=== PATIENT | female | born 1970 ===

== ENCOUNTER 2017-03-21 17:47 | Emergency (ER) | payer MEDICAID ==
[2017-03-21 17:50] VITALS: BMI 26.5
[2017-03-21 17:59] VITALS: RESP 18
[2017-03-21] MEDS ORDERED: Oxycodone/Acetaminophen 5/325 mg Tab PO STA (17:59)
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
[2017-03-21 18:45] VITALS: BP 123/77; PULSE 91; TEMP 98.1
[2017-03-21 19:24] VITALS: O2SAT 99
--- NOTE | 2017-03-22 08:41 | RAD ---
PROCEDURE: Radiographs of the left great toe. TECHNIQUE:: AP radiograph of the left foot, with oblique and lateral view of the left great toe. COMPARISON: None. FINDINGS: BONES: First proximal phalangeal comminuted fracture with interphalangeal joint extension. No fracture displacements appreciated. No dislocation suggested JOINTS: As above SOFT TISSUES: 1st proximal phalangeal Overlying mild increased soft tissue density OTHER FINDINGS: None. IMPRESSION: Comminuted undisplaced 1st proximal phalange fracture with interphalangeal joint space extension
== END 2017-03-21 19:26 | disposition home or self-care (01) ==
LOC: ED 17:47
DX: S92.312A Displaced fracture of first metatarsal bone, left foot, initial encounter for closed fracture (principal); W22.8XXA Striking against or struck by other objects, initial encounter; Y93.89 Activity, other specified; Y92.89 Other specified places as the place of occurrence of the external cause

== ENCOUNTER 2017-03-27 12:40 | Emergency (ER) | payer MEDICAID ==
[2017-03-27 12:40] VITALS: BMI 26.5
--- NOTE | 2017-03-27 12:54 | ED PDOC ---
Arrival/HPI - General Time Seen by Provider: 03/27/17 12:53 Historian: Patient - History of Present Illness Narrative History of Present Illness (Text): 03/27/17 12:53 47 y/o female, pmh including asthma and 1st toe fracture (cee tape and splinted), nkda, c/o lt. foot toe digit pain s/p took the splint off. I see the patient about 4 days ago for the fracture of the toe, stated that she took the splint off as it was dirty, here having pain and request to be splint again. Pt. didn't have any new fall or trauma, didn't stand on it, no fever or chills, no headache or night sweat, no dizziness, no other medical or psychological complaints. Past Medical History - Provider Review Nursing Documentation Reviewed: Yes - Infectious Disease Hx of Infectious Diseases: None - Cardiac Hx Cardiac Disorders: No - Pulmonary Hx Respiratory Disorders: Yes Hx Asthma: Yes - Neurological Hx Neurological Disorder: No - HEENT Hx HEENT Disorder: No - Renal Hx Renal Disorder: No - Endocrine/Metabolic Hx Endocrine Disorders: No - Hematological/Oncological Hx Blood Disorders: No - Integumentary Hx Dermatological Disorder: No - Musculoskeletal/Rheumatological Hx Musculoskeletal Disorders: No - Gastrointestinal Hx Gastrointestinal Disorders: No - Genitourinary/Gynecological Hx Genitourinary Disorders: No - Psychiatric Hx Psychophysiologic Disorder: No Hx Substance Use: No - Surgical History Hx Hysterectomy: Yes - Anesthesia Hx Anesthesia: Yes Hx Anesthesia Reactions: No Family/Social History - Physician Review Nursing Documentation Reviewed: Yes Family/Social History: Unknown Family HX Smoking Status: Never Smoked Hx Alcohol Use: Yes Hx Substance Use: No Allergies/Home Meds Allergies/Adverse Reactions: Allergies No Known Allergies Allergy (Verified 03/21/17 17:50) Home Medications: Home Meds Medication Instructions Recorded Confirmed Albuterol HFA [Ventolin HFA 90 1 puff IH PRN PRN 03/21/17 03/27/17 mcg/actuation (8 g)] Review of Systems - Review of Systems Constitutional: absent: Fatigue, Fevers Eyes: absent: Vision Changes ENT: absent: Hearing Changes Respiratory: absent: SOB, Cough Cardiovascular: absent: Chest Pain Gastrointestinal: absent: Abdominal Pain, Nausea, Vomiting Musculoskeletal: Arthralgias Physical Exam Vital Signs Reviewed: Yes Vital Signs Temp Pulse Resp BP Pulse Ox 03/27/17 13:04 97.9 F 81 18 129/85 98 Temperature: Afebrile Blood Pressure: Normal Pulse: Regular Respiratory Rate: Normal Appearance: Positive for: Well-Appearing, Non-Toxic, Comfortable Pain Distress: Moderate Mental Status: Positive for: Alert and Oriented X 3 - Systems Exam Head: Present: Atraumatic, Normocephalic Pupils: Present: PERRL Extroacular Muscles: Present: EOMI Conjunctiva: Present: Normal Mouth: Present: Moist Mucous Membranes Neck: Present: Normal Range of Motion Respiratory/Chest: Present: Clear to Auscultation, Good Air Exchange. No: Respiratory Distress, Accessory Muscle Use Cardiovascular: Present: Regular Rate and Rhythm, Normal S1, S2. No: Murmurs Abdomen: Present: Normal Bowel Sounds. No: Tenderness, Distention, Peritoneal Signs Back: Present: Normal Inspection Upper Extremity: Present: Normal Inspection. No: Cyanosis, Edema Lower Extremity: Present: Normal Inspection, Other (Lt. foot: +ttp on the 1st great toe region, skin intact, no laceration or abrasion, no skin discoloration , FROM without limitation, sensation intact, motor 5/5, +DPPT pulses, capillary refill< 2 seconds, neurovascular intact. ). No: Edema Neurological: Present: GCS=15, Speech Normal, Motor Func Grossly Intact, Gait Normal, Memory Normal Skin: Present: Warm, Dry, Normal Color. No: Rashes Psychiatric: Present: Alert, Oriented x 3, Normal Insight, Normal Concentration Medical Decision Making ED Course and Treatment: 03/27/17 12:55 -new cee tapping and splint applied by me with neurovascular intact, percocet for pain, feels better. -Discharge home with new cee tapping, posterior splint, mobic for pain, continue crutches, non-weight bearing, follow up with your own pmd and manager research development within 2 days, return to the ER for any new or worsening signs or symptoms. - PA / STAGE TECHNICIAN / Resident Statement MD/DO has reviewed & agrees with the documentation as recorded. Disposition/Present on Arrival - Present on Arrival Any Indicators Present on Arrival: No History of DVT/PE: No History of Uncontrolled Diabetes: No Urinary Catheter: No History of Decub. Ulcer: No History Surgical Site Infection Following: None - Disposition Have Diagnosis and Disposition been Completed?: Yes Diagnosis: Toe fracture Disposition: HOME/ ROUTINE Disposition Time: 12:54 Patient Plan: Discharge Condition: GOOD Additional Instructions: Discharge home with new cee tapping, posterior splint, mobic for pain, continue crutches, non-weight bearing, follow up with your own pmd and manager research development within 2 days, return to the ER for any new or worsening signs or symptoms. Referrals: PCP,NO [Primary Care Provider] - Follow up with primary Mina Reis DPM [Staff Provider] - Follow up with primary [facility] at [facility] [Outside] - Follow up with primary Forms: WORK NOTE
[2017-03-27 13:08] VITALS: BP 129/85; PULSE 81; RESP 18; TEMP 97.9; O2SAT 98
[2017-03-27] MEDS ORDERED: Oxycodone/Acetaminophen 5/325 mg Tab PO STA (13:15)
== END 2017-03-27 14:24 | disposition home or self-care (01) ==
LOC: ED 12:40
DX: S92.402A Displaced unspecified fracture of left great toe, initial encounter for closed fracture (principal); X58.XXXA Exposure to other specified factors, initial encounter

== ENCOUNTER 2017-09-26 10:42 | Emergency (ER) | payer MEDICAID ==
[2017-09-26 10:43] VITALS: BMI 26.5
[2017-09-26 10:47] VITALS: RESP 18
[2017-09-26] MEDS ORDERED: guaiFENesin 200 mg/10 ml Syrup UD PO STA (10:55)
[2017-09-26 10:56] VITALS: BP 122/70; PULSE 80; TEMP 98.2; O2SAT 96
--- NOTE | 2017-09-26 10:58 | ED PDOC ---
Arrival/HPI - General Chief Complaint: Flu-like Symptoms Time Seen by Provider: 09/26/17 10:51 Historian: Patient - History of Present Illness Narrative History of Present Illness (Text): 09/26/17 10:56 47yo female with PMhx of Asthma present with 3days history of nonproductive cough, sneezing, headache and bodyache. states she took tea without relieve. denies fever, chills, sore throat, nausea, SOB, chest pain, abdominal pain, vomiting, sick contact, travel. Past Medical History - Provider Review Nursing Documentation Reviewed: Yes - Infectious Disease Hx of Infectious Diseases: None - Cardiac Hx Cardiac Disorders: No - Pulmonary Hx Respiratory Disorders: Yes Hx Asthma: Yes - Neurological Hx Neurological Disorder: No - HEENT Hx HEENT Disorder: No - Renal Hx Renal Disorder: No - Endocrine/Metabolic Hx Endocrine Disorders: No - Hematological/Oncological Hx Blood Disorders: No - Integumentary Hx Dermatological Disorder: No - Musculoskeletal/Rheumatological Hx Musculoskeletal Disorders: No - Gastrointestinal Hx Gastrointestinal Disorders: No - Genitourinary/Gynecological Hx Genitourinary Disorders: No - Psychiatric Hx Psychophysiologic Disorder: No Hx Substance Use: No - Surgical History Hx Section: Yes Hx Hysterectomy: Yes - Anesthesia Hx Anesthesia: Yes Hx Anesthesia Reactions: No Hx Malignant Hyperthermia: No Family/Social History - Physician Review Nursing Documentation Reviewed: Yes Family/Social History: Unknown Family HX Smoking Status: Never Smoked Hx Alcohol Use: Yes Frequency of alcohol use: Socially Hx Substance Use: No Allergies/Home Meds Allergies/Adverse Reactions: Allergies ibuprofen [From Motrin] Adverse Reaction (Severe, Verified 09/26/17 11:09) PAIN Home Medications: Home Meds Medication Instructions Recorded Confirmed Albuterol HFA [Ventolin HFA 90 1 puff IH PRN PRN 03/21/17 09/26/17 mcg/actuation (8 g)] Review of Systems - Physician Review All systems were reviewed & negative as marked: Yes - Review of Systems Constitutional: Normal Eyes: Normal ENT: Normal Respiratory: Cough. absent: Sputum, Wheezing Cardiovascular: Normal Gastrointestinal: Normal Genitourinary Female: Normal Musculoskeletal: Normal Skin: Normal Neurological: Normal, Headache. absent: Dizziness, Focal Weakness, Speech Changes Endocrine: Normal Hemo/Lymphatic: Normal Psychiatric: Normal Physical Exam Vital Signs Reviewed: Yes Vital Signs Temp Pulse Resp BP Pulse Ox 09/26/17 10:55 98.2 F 80 18 122/70 96 09/26/17 10:45 98.1 F 82 18 119/83 98 Temperature: Afebrile Blood Pressure: Normal Pulse: Regular Respiratory Rate: Normal Appearance: Positive for: Well-Appearing, Non-Toxic, Comfortable Pain Distress: None Mental Status: Positive for: Alert and Oriented X 3 - Systems Exam Head: Present: Atraumatic, Normocephalic Pupils: Present: PERRL Extroacular Muscles: Present: EOMI Conjunctiva: Present: Normal Mouth: Present: Moist Mucous Membranes Neck: Present: Normal Range of Motion Respiratory/Chest: Present: Clear to Auscultation, Good Air Exchange. No: Respiratory Distress, Accessory Muscle Use, Wheezes, Decreased Breath Sounds, Rales, Retracting, Rhonchi Cardiovascular: Present: Regular Rate and Rhythm, Normal S1, S2. No: Murmurs Abdomen: Present: Normal Bowel Sounds. No: Tenderness, Distention, Peritoneal Signs Back: Present: Normal Inspection Upper Extremity: Present: Normal Inspection. No: Cyanosis, Edema Lower Extremity: Present: Normal Inspection. No: Edema Neurological: Present: GCS=15, CN II-XII Intact, Speech Normal, Normal Cerebellar Funct Skin: Present: Warm, Dry, Normal Color. No: Rashes Psychiatric: Present: Alert, Oriented x 3, Normal Insight, Normal Concentration Medical Decision Making ED Course and Treatment: 09/26/17 11:48 PT presented for stated history. Her PE was benign. She was hemodynamically stable in ED Rapid flu is negative CXR NAD Result was DW the pt. She will be treated symptomatically for cough and analgesic. Advised to drink plenty of fluid and f/u with her PMd. TRT ED for any new or worsening symptoms. - Lab Interpretations Lab Results: Lab Results 09/26/17 11:08: Influenza Typ A,B (EIA) Negative for flu a/b - RAD Interpretation Radiology Orders: 09/26/17 10:54 CHEST TWO VIEWS (PA/LAT) [RAD] Stat - Medication Orders Current Medication Orders: Discontinued Medications Acetaminophen (Tylenol 325mg Tab) 650 mg PO STAT STA Stop: 09/26/17 11:01 Last Admin: 09/26/17 11:05 Dose: 650 mg MAR Pain/Vitals Document 09/26/17 11:05 LA (Rec: 09/26/17 11:06 LA [id number]) Pain Reassessment Is This A Pain ReAssessment? No Sleep Is patient sleeping during reassessment? No Presence of Pain Presence of Pain Yes Pain Scale Used Pain Scale Used Numeric Guaifenesin (Robitussin) 200 mg PO ONCE STA Stop: 09/26/17 10:56 Last Admin: 09/26/17 11:02 Dose: 200 mg Disposition/Present on Arrival - Present on Arrival Any Indicators Present on Arrival: No History of DVT/PE: No History of Uncontrolled Diabetes: No Urinary Catheter: No History of Decub. Ulcer: No History Surgical Site Infection Following: None - Disposition Have Diagnosis and Disposition been Completed?: Yes Diagnosis: Cough, Malaise Disposition Time: 12:00 Patient Plan: Discharge Patient Problems: Current Active Problems Problem Status Onset Cough Acute Malaise Acute Condition: STABLE Discharge Instructions (ExitCare): Acute Cough (ED) Additional Instructions: Follow up with your doctor Return to ED for any new or worsening symptoms Prescriptions: Montelukast [Singulair] 10 mg PO DAILY #30 tab Promethazine [Phenergan Syrup] 6.25 mg PO Q6 #118 ml Referrals: PCP,NO [Primary Care Provider] - Follow up with primary [facility] at [facility] [Outside] - Follow up with primary Forms: N-1-1 ([place])
--- NOTE | 2017-09-26 12:24 | RAD ---
HISTORY: cough COMPARISON: No prior. TECHNIQUE: Chest PA and lateral FINDINGS: LUNGS: No active pulmonary disease. PLEURA: No significant pleural effusion identified. No pneumothorax apparent. CARDIOVASCULAR: Normal. OSSEOUS STRUCTURES: No significant abnormalities. VISUALIZED UPPER ABDOMEN: Normal. OTHER FINDINGS: None. IMPRESSION: No active disease.
== END 2017-09-26 12:40 | disposition home or self-care (01) ==
LOC: ED 10:42
DX: R53.81 Other malaise (principal); R05 Cough

== ENCOUNTER 2017-12-16 05:55 | Emergency (ER) | payer MEDICAID, OTHER ==
[2017-12-16 06:01] VITALS: BMI 25.4
[2017-12-16 06:08] VITALS: BP 103/81; PULSE 94; RESP 20; TEMP 98.2; O2SAT 96
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
--- NOTE | 2017-12-16 10:35 | RAD ---
PROCEDURE: Radiographs of the Left Forearm HISTORY: fall, ulnar forearm pain COMPARISON: None available. TECHNIQUE: Frontal and lateral views obtained. FINDINGS: BONES: Midshaft fracture of the left ulna. Major fracture fragments are anatomically aligned. JOINT SPACES: Unremarkable. OTHER FINDINGS: Soft tissue swelling attests to the acuity of the fracture. IMPRESSION: Acute fracture at midshaft left ulna.
--- NOTE | 2017-12-16 10:36 | RAD ---
PROCEDURE: Left Hand Radiographs. HISTORY: fall, hand pain COMPARISON: None. FINDINGS: BONES: No additional fractures identified. Incomplete leak visualized left ulnar fracture. JOINTS: Osteoarthritic changes, mild proximal and distal interphalangeal joint distribution SOFT TISSUES: Normal. OTHER FINDINGS: None. IMPRESSION: No acute findings. Osteoarthritic changes, mild.
== END 2017-12-16 07:07 | disposition home or self-care (01) ==
LOC: ED 05:55
DX: S52.202A Unspecified fracture of shaft of left ulna, initial encounter for closed fracture (principal)